=== PATIENT | female | born 1960 | race Caucasian/White ===

== ENCOUNTER 2023-12-22 16:43 | Inpatient (IN) | payer MEDICARE ==
[~2023-12-22] VITALS: Ht 167.6 cm; Wt 142.8 kg
--- NOTE | 2023-12-22 18:15 | NUR ---
PT UP TO ROOM AT THIS TIME. PT A/O X4, ON RA, NO PAIN, MARIE TO DEPENDENT DRAINAGE, HOSPITALIST AND ORTHO NOTIFIED OF PT ARRIVAL. WILL CONTINUE TO MONITOR.
--- NOTE | 2023-12-22 19:22 | NUR ---
1400-RECEIVED A CALL FROM [facility], DR. ANGELO REQUESTING TRANSFER FOR PATIENT FOR LEFT HIP FRACTURE. ORTHO ACCEPTED A CONSULT BUT WANTS HOSPITALIST TO ADMIT D/T EXTENSIVE MEDICAL HISTORY. DR. TEAGUE ACCEPTS PATIENT FOR ADMISSION INPATIENT STATUS.
[2023-12-22 20:30] VITALS: BP_SYST 131
--- NOTE | 2023-12-22 20:30 | NUR ---
PT IN BED, IS ALERT AND ORIENTED X4. WAITING ON ORDERS FROM NEFTALI OLIVARES. HAS INT TO LT HAND. SCDS ON. PT MORBIDLY OBESE, NO CINTHYA HOSE TO FIT BLE. DENIES PAIN AT THIS TIME.
[2023-12-22 20:38] VITALS: BP 131/72; PULSE 93; TEMP 98.2
[2023-12-22 20:39] LABS: BASO % 0.4 % (0.0-2.0); EOS # 0.1 K/mm3 (0.0-0.7); EOS % 1.2 % (0.0-4.0); GRAN # 5.7 K/mm3 (1.4-6.5); GRAN % 74.3 % (42.2-75.2); HEMOGLOBIN 12.1 g/dl (12.5-16.0); LYMPH # 1.2 K/mm3 (1.2-3.4); LYMPH % 15.1 % (20.0-51.0); MEAN CELL VOLUME 94 fl (80.0-100.0); MEAN CORPUSCULAR HEMOGLOBIN 31 pg (27-31); MEAN CORPUSCULAR HGB CONC 33 g/dl (33.0-37.0); MEAN PLATELET VOLUME 10.6 fl (7.4-10.4); MONO # 0.7 K/mm3 (0.1-0.6); MONO % 8.7 % (1.7-9.3); PLATELET COUNT 167 K/mm3 (130-400); RED BLOOD COUNT 3.91 M/mm3 (4.10-5.30); REDCELL DISTRIBUTION WIDTH-CV 15.1 % (11.5-14.5)
[2023-12-22 20:41] LABS: ALBUMIN 3.6 gm/dL (3.4-4.8); BILIRUBIN,TOTAL 0.7 mg/dL (0.2-1.2); CREATININE, serum 0.97 mg/dL (0.57-1.11); HEMATOCRIT 36.7 % (37.0-47.0); MAGNESIUM 2.1 mg/dL (1.6-2.6); POTASSIUM 4.1 mmol/L (3.5-4.5); TOTAL PROTEIN 6.2 gm/dL (6.2-8.1)
[2023-12-22] MEDS ORDERED: ELIQUIS 5MG PO (20:54)
[2023-12-22] MEDS ORDERED: K-DUR 10 MEQ T10 MEQ PO (20:55)
[2023-12-22] MEDS ORDERED: OTREXUP25 MG/0.4 SQ (20:56)
[2023-12-22] MEDS ORDERED: LASIX 40MG TABL40 MG PO (20:56)
[2023-12-22] MEDS ORDERED: SINGULAIR 110 MG/TAB PO (20:57)
[2023-12-22] MEDS ORDERED: COZAAR100 MG PO (20:57)
[2023-12-22] MEDS ORDERED: TOPROL XL 25MG25 MG PO (20:58)
[2023-12-22] MEDS ORDERED: TOPROL XL100 MG PO (20:58)
[2023-12-22] MEDS ORDERED: OZEMPIC2 MG/0.75 SQ (20:59)
[2023-12-22] MEDS ORDERED: CARDIZEM CD 12120 MG PO (20:59)
[2023-12-22] MEDS ORDERED: CYMBALTA 20MG20 MG PO ×2 (21:00)
[2023-12-22] MEDS ORDERED: NEURONTIN300 MG/CAP PO (21:01)
[2023-12-22] MEDS ORDERED: ZOCOR 10MG10 MG PO (21:02)
[2023-12-22] MEDS ORDERED: PROTONIX 40MG T40 MG PO (21:02)
[2023-12-22] MEDS ORDERED: ASTELIN NASAL S34 ML NS (21:03)
[2023-12-22] MEDS ORDERED: BASAGLAR K100 UNIT/1 SQ (21:03)
[2023-12-22] MEDS ORDERED: Simvastatin 10 MG **** subs to Atorvastatin 5 MG PO SCH (21:05)
[2023-12-22] MEDS ORDERED: dilTIAZem CD (24-HR) 120 MG CAP PO SCH (21:06)
[2023-12-22] MEDS ORDERED: DULoxetine 20 MG CAP PO SCH (21:07)
[2023-12-22] MEDS ORDERED: Insulin Glargine-ygfn (Lantus) SQ SCH (21:11)
[2023-12-22] MEDS ORDERED: Ondansetron 4 MG/2 ML VIAL IV PRN (21:30)
[2023-12-22] MEDS ORDERED: Glucagon 1 MG VIAL IM PRN (21:30)
[2023-12-22] MEDS ORDERED: Acetaminophen 325 MG TAB PO PRN (21:30)
[2023-12-22] MEDS ORDERED: Dextrose (Glucose) 15 GM (4 x 3.75 GM) Chewable TABLET PACK PO PRN (21:30)
[2023-12-22] MEDS ORDERED: Morphine 4 MG/ML VIAL IV PRN (21:30)
[2023-12-22] MEDS ORDERED: oxyCODONE 5 MG TAB PO PRN (21:30)
[2023-12-22] MEDS ORDERED: Dextrose 50% Water 25 GM/50 ML SYRINGE IV PRN (21:30)
[2023-12-22] MEDS ORDERED: Gabapentin 300 MG CAP PO SCH (22:00)
[2023-12-22] MEDS ORDERED: Montelukast 10 MG TAB PO SCH (22:00)
[2023-12-22] MEDS ORDERED: Atorvastatin 10 MG TAB PO SCH (22:00)
[2023-12-22] MEDS ORDERED: Insulin Lispro (HumaLOG) SQ SCH (22:00)
--- NOTE | 2023-12-22 22:33 | NUR ---
HS MEDS GIVEN INCLUDING OXYCODONE FOR LT HIP PAIN. MARIE TO BSD WITH YELLOW URINE. INT TO LT HAND. ADMISSIONS QUESTIONS COMPLETED. PT READY FOR SLEEP.
--- NOTE | 2023-12-22 23:12 | NUR ---
PT REFUSED CPAP FOR THE NIGHT.
[2023-12-22 23:44] VITALS: BP 94/63; PULSE 106; TEMP 98.4
[2023-12-23] VITALS (12 sets, daily range): BP systolic 88–136; BP diastolic 50–74; PULSE 83–88; TEMP 97.8–98.2
--- NOTE | 2023-12-23 02:23 | NUR ---
PT REPORTS RT HEEL PAIN, ELEVATED ON PILLOW. MEDICATED WITH OXYCODONE 5MG PO FOR LT HIP PAIN.
[2023-12-23 06:40] LABS: HEMOGLOBIN 11.1 g/dl (12.5-16.0); MEAN CELL VOLUME 95 fl (80.0-100.0); MEAN CORPUSCULAR HEMOGLOBIN 31 pg (27-31); MEAN CORPUSCULAR HGB CONC 32 g/dl (33.0-37.0); MEAN PLATELET VOLUME 10.6 fl (7.4-10.4); PLATELET COUNT 151 K/mm3 (130-400); RED BLOOD COUNT 3.61 M/mm3 (4.10-5.30)
--- NOTE | 2023-12-23 06:45 | NUR ---
awake resting in bed, bedside shift report received from LAMAR Sandoval
[2023-12-23 06:46] LABS: HEMATOCRIT 34.3 % (37.0-47.0)
[2023-12-23 06:51] LABS: CALCIUM 9.2 mg/dL (8.4-10.2); CREATININE, serum 0.93 mg/dL (0.57-1.11); POTASSIUM 4.2 mmol/L (3.5-4.5)
--- NOTE | 2023-12-23 08:01 | NUR ---
resting in bed, physical therapy in to work with patient
[2023-12-23] MEDS ORDERED: DULoxetine 20 MG CAP PO SCH (09:00)
[2023-12-23] MEDS ORDERED: Gabapentin 300 MG CAP PO SCH (09:00)
[2023-12-23] MEDS ORDERED: Losartan 50 MG TAB PO SCH (09:00)
[2023-12-23] MEDS ORDERED: Furosemide 80 MG TAB PO SCH (09:00)
--- NOTE | 2023-12-23 09:30 | NUR ---
sitting up on side of bed, assisted to lying back in bed and moreno cath discontinued using chemo precautions, tolerated procedure well, full assessment then completed, see interventions for further info, denies needs at this time
[2023-12-23] MEDS ORDERED: VITAMIN C500 MG PO (10:12)
[2023-12-23] MEDS ORDERED: CALCIUM CARB W/1 TA1 PO (10:13)
[2023-12-23] MEDS ORDERED: MULTI VITAMINS1 TAB PO (10:13)
[2023-12-23] MEDS ORDERED: FOLIC ACID0.4 MG PO (10:14)
[2023-12-23] MEDS ORDERED: MASON NATURAL2000 IU PO (10:14)
[2023-12-23] MEDS ORDERED: TYLENOL 8 HR PO (10:15)
[2023-12-23] MEDS ORDERED: ASPIRIN E.C. 8181 MG PO (10:15)
[2023-12-23] MEDS ORDERED: STOOL SOFTENER100 M2 PO (10:15)
[2023-12-23] MEDS ORDERED: NATURE'S BLEND500 M1 PO (10:18)
[2023-12-23] MEDS ORDERED: MIRALAX510G PO (10:18)
[2023-12-23] MEDS ORDERED: NOVOLOG FLEX100 U/ML SQ (10:21)
--- NOTE | 2023-12-23 10:54 | NUR ---
Initial visit; "Haley" thanked Recovery Advocate for looking in on her and offering God's blessings. Patient said she has been blessed already with the news that she isn't requiring surgery yet. Recovery Advocate said she will offer prayer of "thanksgiving" for her. Haley pleased with that idea.
--- NOTE | 2023-12-23 11:20 | NUR ---
c/o pain 5 after working with occupational therapy, medicated with roxicodone 5mg po
[2023-12-23] MEDS ORDERED: NS 500 ML IV SCH (12:00)
[2023-12-23] MEDS ORDERED: Apixaban 5 MG TAB PO SCH (12:00)
--- NOTE | 2023-12-23 12:04 | NUR ---
sitting up having lunch, Dr Cha was in and saw patient, 500ml bolus started for BP 88/50, denies any dizziness
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
--- NOTE | 2023-12-23 14:34 | NUR ---
resting in bed looking at TV, denies needs
--- NOTE | 2023-12-23 16:21 | NUR ---
sitting up in chair, denies needs
--- NOTE | 2023-12-23 16:57 | NUR ---
plant care worker was notified that [facility] is unable to accept patient due to no PT in that area at this time. SW met with patient to discuss home health second option. Patient chose [facility]. Patient asked if she would discharge tomorrow or Thursday as she was working on scheduling transportation. SW discussed this with Dr. Cha whom stated it was dependent on how the patient was feeling it could be tomorrow or Thursday. SW notified the patient to schedule transportation for tomorrow and if she needs to cancel she can tomorrow. Patient agreed with this plan. SW faxed referral to [facility]. Discharge plan: Home with Home Health
--- NOTE | 2023-12-23 18:43 | NUR ---
bedside shift report given to LAMAR Almeida
--- NOTE | 2023-12-23 20:47 | NUR ---
PT IN BED, PREVIOUSLY UP TO BATHROOM WITH ONE ASSIST/WALKER/GAIT BELT. HS MEDS GIVEN INCLUDING OXYCODONE 5MG PO FOR LT LEG PAIN. BLE EDEMA WITH REDNESS TO RLE. WEARING SCDS. HAS INT TO LT HAND.
[2023-12-24 00:09] VITALS: BP_SYST 136
--- NOTE | 2023-12-24 00:25 | NUR ---
PT ASSISTED TO BATHROOM WITH ONE ASSIST/GAITBELT/WALKER, VOIDS AND BACK TO BED.
[2023-12-24 03:41] VITALS: BP 116/70; PULSE 80; TEMP 97.5
--- NOTE | 2023-12-24 03:44 | NUR ---
ASSISTED TO BATHROOM WITH WALKER/GAITBELT/ONE ASSIST,VOIDS AND BACK TO BED. OXYCODONE 5MG PO GIVEN NOW FOR LT HIP PAIN.
[2023-12-24 04:12] VITALS: BP_SYST 116
[2023-12-24 07:12] LABS: CALCIUM 9.4 mg/dL (8.4-10.2); CREATININE, serum 1.1 mg/dL (0.57-1.11); POTASSIUM 4.2 mmol/L (3.5-4.5)
[2023-12-24 07:29] VITALS: BP 68/43; BP 91/59; PULSE 90; TEMP 97.9
[2023-12-24 07:34] LABS: THYROID STIMULATING HORMONE 1.555 uIU/mL (0.350-4.940)
--- NOTE | 2023-12-24 07:51 | NUR ---
Patient sitting on the edge of bed, A&Ox4. VSS. IV CDI. Denies pain and discomfort. Call light within reach
[2023-12-24 11:42] VITALS: BP 129/66; PULSE 93; TEMP 98.3
[2023-12-24] MEDS ORDERED: TYLENOL 8 HR PO (11:45)
[2023-12-24] MEDS ORDERED: ROXICODONE 55 MG/TAB PO (11:46)
--- NOTE | 2023-12-24 12:38 | NUR ---
Discharge paperwork reviewed with the patient. Patient verbalized an understanding to follow doctors orders. IV removed, tip intact. Gauze and coban applied. Patient waiting on ride home. No further needs expressed. Call light within reach
--- NOTE | 2023-12-24 13:22 | NUR ---
warehouse insulation worker was notified patient is ready for discharge today back home with home health. SW confirmed with [facility] health and they confirmed they are able to accept patient. SW faxed updates to [facility] along with discharge information. Discharge plan: Home with home health
--- NOTE | 2023-12-24 14:44 | NUR ---
Patient transfered by wheelchair to awaiting vehicle with personal belongings. No further needs expressed
== END 2023-12-24 14:44 | disposition home health service (06) | DRG 536 ==
LOC: SURG 16:43
PROVIDERS: Physician Assistant; ADMIT Internal Medicine
DX: S72.112A Displaced fracture of greater trochanter of left femur, initial encounter for closed fracture (principal); I48.20 Chronic atrial fibrillation, unspecified; Z68.43 Body mass index [BMI] 50.0-59.9, adult; E66.01 Morbid (severe) obesity due to excess calories; G47.33 Obstructive sleep apnea (adult) (pediatric); E11.40 Type 2 diabetes mellitus with diabetic neuropathy, unspecified; I10 Essential (primary) hypertension; Z66 Do not resuscitate; E11.51 Type 2 diabetes mellitus with diabetic peripheral angiopathy without gangrene; W18.39XA Other fall on same level, initial encounter; I89.0 Lymphedema, not elsewhere classified; I95.9 Hypotension, unspecified; J45.909 Unspecified asthma, uncomplicated; E78.5 Hyperlipidemia, unspecified; Z79.01 Long term (current) use of anticoagulants; Z79.899 Other long term (current) drug therapy; Z79.4 Long term (current) use of insulin; Z88.0 Allergy status to penicillin; Z99.89 Dependence on other enabling machines and devices; Z88.2 Allergy status to sulfonamides; Y93.89 Activity, other specified; Y92.89 Other specified places as the place of occurrence of the external cause; Z23 Encounter for immunization
CPT/HCPCS: J1815; J2405; J7040